=== PATIENT | male | born 1965 | race Caucasian/White ===

== ENCOUNTER 2023-06-16 12:35 | Emergency (ER) | payer OTHER ==
[2023-06-16 13:06] VITALS: BP 133/88; PULSE 74; RESP 18; TEMP 97.8; BMI 26.4
[2023-06-16] MEDS ORDERED: TETRACAINE 0.5% HCL 0.6ML DROPPER.BOTTLE OS ONE (14:38)
[2023-06-16] MEDS ORDERED: FLUORESCEIN NA 1 EA STRIP OS ONE (14:38)
[2023-06-16] MEDS ORDERED: FLUORESCEIN NA 1 EA STRIP ONE (14:47)
[2023-06-16] MEDS ORDERED: TETRACAINE 0.5% OPHTH SOLN 2 ML BOTTLE ONE (14:47)
== END 2023-06-16 15:59 | disposition home or self-care (01) ==
LOC: JERFT 12:35
PROC: 08C1XZZ Extirpation of Matter from Left Eye, External Approach (ICD-10-PCS; principal; 2023-06-16)
DX: T15.02XA Foreign body in cornea, left eye, initial encounter (principal); H57.89 Other specified disorders of eye and adnexa
CPT/HCPCS: 99283-25